=== PATIENT | female | born 1950 | race Caucasian/White ===

== ENCOUNTER 2023-05-03 08:49 | Day surgery (SDC) | payer MEDICARE, OTHER ==
[~2023-05-03 08:49] MED LIST: Sodium Chloride 0.9% 10 ML Syringe FLUSH PRN; Sodium Chloride 0.9% 10 ML Syringe FLUSH SCH
[2023-05-03] MEDS: Lactated Ringers 1,000 ML IV SCH (09:05)
[2023-05-03] MEDS ORDERED: fentaNYL 100 MCG/2 ML SDV ONE (09:26)
[2023-05-03] MEDS ORDERED: Lidocaine 1% 6 ML ONE (09:26)
[2023-05-03] MEDS ORDERED: Propofol 200 MG/20 ML SDV ONE ×2 (09:26→10:47)
[2023-05-03] MEDS ORDERED: Lactated Ringers 1,000 ML ONE (10:27)
[2023-05-03 11:46] VITALS: BP 122/56; PULSE 72
== END 2023-05-03 11:40 | disposition home or self-care (01) ==
LOC: JD.SDS 08:49
PROVIDERS: ATTEND Surgery
DX: D12.2 Benign neoplasm of ascending colon (principal); D12.4 Benign neoplasm of descending colon; D12.5 Benign neoplasm of sigmoid colon; K63.5 Polyp of colon; K64.8 Other hemorrhoids; I10 Essential (primary) hypertension; E78.5 Hyperlipidemia, unspecified; E11.9 Type 2 diabetes mellitus without complications; Z88.5 Allergy status to narcotic agent; Z79.899 Other long term (current) drug therapy
CPT/HCPCS: 45380; J2704; J3010; J7120; 00811; 99100; J3490